=== PATIENT | female | born 1960 | race Caucasian/White ===

== ENCOUNTER 2017-04-11 16:36 | Emergency (ER) | payer BC ==
[~2017-04-11] VITALS: Ht 162.6 cm; Wt 132.0 kg
[2017-04-11 17:30] VITALS: BP 162/73; PULSE 105; RESP 16; TEMP 98.3; O2SAT 97
[2017-04-11] MEDS ORDERED: KETOROLAC TROMETHAMINE 60 MG/2 ML (IM) VIAL IM ONE (22:00)
[2017-04-11] MEDS ORDERED: SULFAMETHOXAZOLE-TRIMETHOPRIM DS 800-160 MG TAB PO ONE (22:00)
[2017-04-11] MEDS ORDERED: ACETAMINOPHEN/HYDROcodone 325 MG/5 MG TAB PO ONE (22:00)
--- NOTE | 2017-04-11 22:07 | PD ---
HPI Chief Complaint: Bite or Sting Time Seen by Provider: 21:43 Travel History International Travel<30 days: No Contact w/Intl Traveler<30days: No Traveled to known affect area: No History of Present Illness HPI 56-year-old female that presents to the ED for evaluation of right hand insect bite. Per patient she is not sure what stung her or bit her. Per patient she was reaching to her hip on the right side when something stung her on her palmar aspect of for third digit. Per patient is very painful. Patient has taken OTC meds with minimal relief. Ice makes it worse. Denies any fevers chills or sweats. No previous injury. Patient has obvious swelling and erythema noted. She is not sure if there is a stinger or something inside of it. She does not know what actually got her and she did not see the insect. No allergies to medication. No chest pain or shortness of breath. PFSH Past Medical History High Cholesterol: Yes Diabetes: Yes Patient Takes Glucophage: Yes (04/11/17 at 0900) Diminished Hearing: No Medical other: Yes (Chronic back pain) Tetanus Vaccination: Unknown Influenza Vaccination: Yes ?: Unknown Past Surgical History Abdominal Surgery: Yes Appendectomy: Yes Cholecystectomy: Yes Valve Replacement: Yes (Cyst removal on neck and abdomen) Social History Alcohol Use: Yes (occ) Tobacco Use: No Substance Use: Yes (marijuana occ ) Allergies-Medications (Allergen,Severity, Reaction): Coded Allergies: No Known Allergies (Unverified , 04/11/17) Review of Systems Except as stated in HPI: all other systems reviewed are Neg Physical Exam Narrative GENERAL: SKIN: Warm and dry. HEAD: Atraumatic. Normocephalic. EYES: Pupils equal and round. No scleral icterus. No injection or drainage. ENT: No nasal bleeding or discharge. Mucous membranes pink and moist. Tongue is midline. No uvula deviation. NECK: Trachea midline. No JVD. CARDIOVASCULAR: Regular rate and rhythm. RESPIRATORY: No accessory muscle use. Clear to auscultation. Breath sounds equal bilaterally. GASTROINTESTINAL: Abdomen soft, non-tender, nondistended. Hepatic and splenic margins not palpable. MUSCULOSKELETAL: Extremities without clubbing, cyanosis, or edema. No obvious deformities. Full range of motion of the upper and lower extremities bilaterally. 2+ pulses bilaterally. Patient has an area of erythema and swelling which is noted on the palmar aspect of the right hand around the webspace between the second and third digits. Tender to touch in this area. Warm to the touch. NEUROLOGICAL: Awake and alert. No obvious cranial nerve deficits. Motor grossly within normal limits. Five out of 5 muscle strength in the arms and legs. Normal speech. PSYCHIATRIC: Appropriate mood and affect; insight and judgment normal. Data Data Last Documented VS Vital Signs Date Time Temp Pulse Resp B/P (MAP) Pulse Ox O2 Delivery O2 Flow Rate FiO2 04/11/17 17:30 98.3 105 16 162/73 (102) 97 Orders Orders Ketorolac Inj (Toradol Inj) (04/11/17 22:00) Sulfamet-Trimeth Ds 800-160 Mg (Bactrim (04/11/17 22:00) Hand, Complete ([id number]) (04/11/17 ) Acetamin-Hydrocod 325-5 Mg ([place] 5-325 (04/11/17 22:00) Tetanus/Diphtheria Tox Adult (Tetanus/Di (04/11/17 22:30) MDM Medical Decision Making Medical Screen Exam Complete: Yes Emergency Medical Condition: Yes Medical Record Reviewed: Yes Differential Diagnosis Insect bite versus insect sting versus allergic reaction versus cellulitis versus abscess abscess Narrative Course 56-year-old female that presents to the ED for evaluation of possible insect bite. Patient was properly examined and was found to have signs and symptoms of unclear etiology at this time. Recommend x-ray and medications. Patient is with this. X-ray showed no sign of acute disease. Patient was reassured. Likely insect bite. Possibility of cellulitis present but this just happened today. At this time I will treat patient with antibiotics, pain medication and anti-inflammatories. Patient agrees with plan. Ice or warm compresses were discussed. Close follow with PCP. Recheck if worse. See ED worsening symptoms. Diagnosis Primary Impression: Infected insect bite or sting Patient Instructions: General Instructions, Narcotic given in the ED Additional Instructions: Take medications as prescribed. Follow-up with PCP. See ED for any worsening symptoms. Do not drink or drive while taking pain medication. Apply ice or heat as needed for pain Med/Other Pt SpecificInfo: Prescription(s) given Disposition: 01 DISCHARGE HOME Condition: Stable Bolivar Jiménez Apr 11, 2017 22:07
[2017-04-11] MEDS ORDERED: TETANUS/DIPHTHERIA TOXOID ADULT 0.5 ML VIAL IM ONE (22:30)
--- NOTE | 2017-04-11 22:37 | RADRPT ---
EXAM DATE/TIME: 04/11/2017 22:09 [facility] COMPARISON: No previous studies available for comparison. INDICATIONS : Possible insect bite right hand. MEDICAL HISTORY : None. SURGICAL HISTORY : None. ENCOUNTER: Initial ACUITY: 1 day PAIN SCORE: 5/10 LOCATION: Right hand. FINDINGS: Three view examination of the right hand demonstrates no soft tissue swelling, dislocation, or fractu re. The carpal bones appear intact. The interphalangeal and metacarpophalangeal joints are intact. Bony mineralization is normal. CONCLUSION: Normal radiographic appearance of the right hand. Bright Infante MD on April 11, 2017 at 22:35 Board Certified Radiologist. This report was verified electronically.
[2017-04-11] MEDS ORDERED: HYDR-3533 PO (22:44)
[2017-04-11] MEDS ORDERED: IBUP800T23 PO (22:44)
[2017-04-11] MEDS ORDERED: BACT800T5 PO (22:44)
== END 2017-04-11 23:14 | disposition home or self-care (01) ==
LOC: PHED 16:36 → PHEFT 23:14
DX: S61.252A Open bite of right middle finger without damage to nail, initial encounter (principal); L08.9 Local infection of the skin and subcutaneous tissue, unspecified; W57.XXXA Bitten or stung by nonvenomous insect and other nonvenomous arthropods, initial encounter; E11.9 Type 2 diabetes mellitus without complications; G89.29 Other chronic pain; Z95.2 Presence of prosthetic heart valve; Z23 Encounter for immunization; Z79.84 Long term (current) use of oral hypoglycemic drugs
CPT/HCPCS: 73130; 90471; 90714; 96372; 99284; J1885

== ENCOUNTER 2017-10-18 01:07 | Emergency (ER) | payer BC ==
[~2017-10-18] VITALS: Ht 170.2 cm; Wt 131.2 kg
[~2017-10-18 01:07] MED LIST: ATOR20TA15 PO; BENA10TA PO; DULO1CAP3 PO; FENO160T PO; GLIM4TAB PO; INSU1INJ5 IJ; METF-382 PO
[2017-10-18 01:25] VITALS: BP 154/70; PULSE 94; RESP 20; TEMP 98.4; O2SAT 97
[2017-10-18 03:05] VITALS: BP 154/70; PULSE 94; RESP 18; TEMP 98.4; O2SAT 97
[2017-10-18] MEDS ORDERED: BACT800T5 PO (03:26)
[2017-10-18] MEDS ORDERED: DULO1CAP3 PO (03:26)
--- NOTE | 2017-10-18 03:57 | PD ---
HPI Chief Complaint: Musculoskeletal Complaint Time Seen by Provider: 03:51 Travel History International Travel<30 days: No Contact w/Intl Traveler<30days: No Traveled to known affect area: No History of Present Illness HPI 57-year-old female presents to the emergency department for complaint of severe left wrist pain. Patient states she has had intermittent pain in the same wrist for the past year. Patient is an evaluation with nerve conduction studies suggesting that she has carpal tunnel syndrome. Patient is right- handed. Patient denies any injury or fall. Patient denies any redness or bruising. Patient has noted swelling and has pain with attempted range of motion of the left wrist for flexion extension. 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 Patient denies any numbness tingling or weakness in the hand. Patient does have history of gouty arthritis and uric acid has been tested and not found to be elevated. Patient is taken no medications for the wrist pain and has not use the splint to support the wrist. Patient states each time she has had an exacerbation in the past year the symptoms developed lasted less than a day and this episode began on Tuesday and is still persistent so patient became concerned. Patient did make a phone call to hand surgeon today Dr. Mercedez Craig and was told that she would be able to make an appointment in the next 3 weeks. Patient is recently [facility] and had previously lived in the [place] area. Patient is a diabetic blood sugars have been controlled between 100-200. The patient again denies any fever or chills. There is been no ascending redness erythema and axillary lymphadenopathy. Patient rates the pain as severe. PFSH Past Medical History Narrative Medical Diabetes dyslipidemia gouty arthritis hypertension appendectomy cholecystectomy ; alcohol use marijuana use; nursing notes reviewed Cardiovascular Problems: Yes (HTN) High Cholesterol: Yes Diabetes: Yes Patient Takes Glucophage: Yes Diminished Hearing: No ?: Not Menopausal: Yes Past Surgical History Abdominal Surgery: Yes Appendectomy: Yes Cholecystectomy: Yes Valve Replacement: Yes (Cyst removal on neck and abdomen) Social History Alcohol Use: Yes (occ) Tobacco Use: No Substance Use: Yes (marijuana occ ) Allergies-Medications (Allergen,Severity, Reaction): Coded Allergies: No Known Allergies (Verified Allergy, Unknown, 10/18/17) Reported Meds & Prescriptions Reported Meds & Active Scripts Active Reported Bactrim DS (Sulfamethoxazole-Trimethoprim) 800-160 Mg Tab 1 Tab PO BID [address] (Duloxetine HCl) 60 Mg Capdr 60 Mg PO DAILY Levemir Flextouch Pen Inj (Insulin Detemir) 300 unit/3 ML Pen 300 Unit IJ BID Metformin ER (Metformin HCl) 1,000 Mg Raul 1,000 Mg PO BID Duloxetine DR (Duloxetine HCl) 60 Mg Capdr 60 Mg PO DAILY Atorvastatin (Atorvastatin Calcium) 20 Mg Tab 20 Mg PO HS Fenofibrate 160 Mg Tab 160 Mg PO DAILY Benazepril (Benazepril HCl) 10 Mg Tab 10 Mg PO DAILY Glimepiride 4 Mg Tab 4 Mg PO DAILY Take with breakfast or first main meal Review of Systems Except as stated in HPI: all other systems reviewed are Neg Physical Exam Narrative GENERAL: Well-developed well-nourished obese female no acute distress or respiratory distress SKIN: Warm and dry. HEAD: Normocephalic. EYES: No scleral icterus. No injection or drainage. NECK: Supple, trachea midline. No JVD or lymphadenopathy. CARDIOVASCULAR: Regular rate and rhythm without murmurs, gallops, or rubs. RESPIRATORY: Breath sounds equal bilaterally. No accessory muscle use. GASTROINTESTINAL: Abdomen soft, non-tender, nondistended. MUSCULOSKELETAL: No cyanosis, or edema. Attention left wrist no redness no increased warmth positive soft tissue swelling decreased range of motion secondary to pain intact thumb opposition capillary refill brisk and less than 2 seconds per digit no deformity. Radial and ulnar pulses 2+ to palpation. Sensory exam intact. Decreased range of motion secondary to marked pain. BACK: Nontender without obvious deformity. No CVA tenderness. Data Data Last Documented VS Vital Signs Date Time Temp Pulse Resp B/P (MAP) Pulse Ox O2 Delivery O2 Flow Rate FiO2 10/18/17 03:20 18 18 03:05 98.4 94 154/70 (98) 97 MDM Medical Decision Making Medical Screen Exam Complete: Yes Emergency Medical Condition: Yes Medical Record Reviewed: Yes Differential Diagnosis Gouty arthritis, tendinitis, fracture, carpal tunnel syndrome Narrative Course Patient has had previous imaging without recent injury negative for fracture; will apply splint and administer weight-based ibuprofen. Patient encouraged to follow-up with hand surgeon. Diagnosis Primary Impression: Acute pain of left wrist Referrals: Hand Surgeon 2 days Patient Instructions: General Instructions Additional Instructions: Wear splint follow up with Hand specialist May use ibuprofen/Motrin/Advil every 6-8 hours as needed for pain associated inflammation Elevate hand Return to the emergency department for any concerns or change in condition Do not drink alcoholic beverages Disposition: 01 DISCHARGE HOME Condition: Stable Alanis Rizo MD Oct 18, 2017 03:57
[2017-10-18] MEDS ORDERED: IBUPROFEN 800 MG TAB PO ONE (04:00)
[2017-10-18 04:19] VITALS: BP 140/73
== END 2017-10-18 04:50 | disposition home or self-care (01) ==
LOC: PHED 01:07
DX: M25.532 Pain in left wrist (principal); R22.32 Localized swelling, mass and lump, left upper limb; E11.9 Type 2 diabetes mellitus without complications; E78.5 Hyperlipidemia, unspecified; I10 Essential (primary) hypertension; M10.9 Gout, unspecified; Z79.4 Long term (current) use of insulin
CPT/HCPCS: 99282; L3908